=== PATIENT | female | born 1975 | race Asian ===

== ENCOUNTER 2021-10-19 22:28 | Inpatient (IN) | payer BC ==
[~2021-10-19] VITALS: Ht 165.1 cm; Wt 68.0 kg
[2021-10-19 22:54] VITALS: BP 132/75
[2021-10-19] MEDS ORDERED: PANTOPRAZOLE 40 MG INJ VIAL IVP ONE (23:00)
[2021-10-19] MEDS ORDERED: ASPIRIN 325 MG TAB PO ONE (23:00)
[2021-10-19] MEDS ORDERED: MORPHINE SULFATE 4 MG/ML SYR IVP ONE (23:00)
[2021-10-19] MEDS ORDERED: ONDANSETRON 4 MG/2 ML VIAL IVP ONE (23:00)
[2021-10-19] MEDS ORDERED: NITROGLYCERIN 0.4 MG TAB SL ONE (23:00)
--- NOTE | 2021-10-19 23:07 | NUR ---
LAB AT BEDSIDE.
[2021-10-19 23:14] LABS: BASOPHILS # (AUTO) 0.1 K/uL (0.00-0.22); BASOPHILS % (AUTO) 0.8 % (0.0-2.0); EOSINOPHILS # (AUTO) 0.2 K/uL (0-0.4); EOSINOPHILS % (AUTO) 2.2 % (0.0-4.0); HEMATOCRIT 38.6 % (36-48); HEMOGLOBIN 12.8 g/dL (12.0-16.0); LYMPHOCYTES # (AUTO) 3.5 K/uL (2.5-16.5); LYMPHOCYTES % (AUTO) 42.8 % (20.5-51.1); MEAN CORPUSCULAR HEMOGLOBIN 30 pg (27-31); MEAN CORPUSCULAR HGB CONC 33 g/dL (33-37); MEAN CORPUSCULAR VOLUME 91.4 fL (80-94); MONOCYTES # (AUTO) 0.4 K/uL (0.8-1.0); MONOCYTES % (AUTO) 5.4 % (1.7-9.3); NEUTROPHILS % (AUTO) 48.8 % (42.2-75.2); PLATELET COUNT (AUTO) 178 K/uL (140-450); RED BLOOD CELL COUNT(AUTO) 4.22 MIL/uL (4.20-5.40); RED CELL DISTRIBUTION WIDTH 13.6 % (11.6-13.7); WHITE BLOOD COUNT (AUTO) 8.1 K/uL (4.8-10.8)
--- NOTE | 2021-10-19 23:36 | NUR ---
45 YO F BIB WITH C/C OF HEART PALPITAIONS X4DAYS. PT STATES SHE FEELS DIZZY. REPORTS SHE WENT TO HOSPITAL ALREADY AND EVERYTHING CAME BACK NORMAL, WAS INSTRUCTED TO FOLLOW UP PLASTICS FITTER. DENIES CHEST PAIN. +SOB DENIES HX, RX AND ALLERGIES
[2021-10-19] MEDS ORDERED: NACL 0.9% 1,000 ML IV ONE ×2 (23:40)
--- NOTE | 2021-10-19 23:43 | NUR ---
VERBAL ORDER FROM TO HOLD MORPHINE IF PT DENIES CHEST PAIN. PT DENIES CHEST PAIN, MORPHINE HELD.
[2021-10-19 23:57] LABS: ANION GAP 9.5 (8-16); CARBON DIOXIDE 25.6 mmol/L (21-32); CHLORIDE 108 mmol/L (98-107); GLUCOSE 103 mg/dL (74-106); POTASSIUM 4.1 mmol/L (3.5-5.1); SODIUM SERUM 139 mmol/L (136-145)
[2021-10-19 23:58] LABS: CREATININE 0.5 mg/dL (0.6-1.3); GFR ARICAN-AMERICAN 172 mL/min (>90); UREA NITROGEN, BLOOD 14 mg/dL (7-18)
--- NOTE | 2021-10-20 00:06 | NUR ---
DENIES TAKING MEDICATION. PER BODY CHECK,NO WOUNDS
[2021-10-20 00:07] LABS: ALBUMIN 3.8 g/dL (3.4-5.0); ASPARTATE AMINOTRANSFERASE 19 U/L (15-37); TOTAL BILIRUBIN 0.3 mg/dL (0.0-1.0)
--- NOTE | 2021-10-20 00:40 | NUR ---
PT AMBULATED TO AND BACK
--- NOTE | 2021-10-20 02:32 | NUR ---
pt appears to be resting equal rise and fall of chest wall. vss. pt is in stable condition. all needs met at this time. bed locked in lowest position, side rails x2 for safety. is at bedside.
--- NOTE | 2021-10-20 07:10 | NUR ---
Pt report given to ROSEANNE SALAZAR. Transfer of care at this time.
--- NOTE | 2021-10-20 07:21 | NUR ---
RECEIVED REPORT FROM ROSEANNE MCALLISTER. ASSUMED CARE AT THIS TIME.
--- NOTE | 2021-10-20 07:33 | NUR ---
PATIENT DISCONNECTED FROM MONITOR, AMBULATED WITH STEADY GAIT TO RESTROOM.
--- NOTE | 2021-10-20 07:50 | NUR ---
Patient will be admitted to care of DR. LYNN. Admited to TELE. Will go to room 104B. Belongings list completed. BEDSIDE Report GIVEN to NIKHIL.
[2021-10-20 07:55] VITALS: BP 106/65
--- NOTE | 2021-10-20 07:55 | NUR ---
PT ADMITTED FROM ED. PT IS AOX4 AND NO S/S OF DISTRESS NOTED. BREATHING IS EVEN AND UNLABORED. DENIES PAIN. PT IS STABLE.
[2021-10-20] MEDS: METOPROLOL 25 MG TAB PO SCH ×2 (09:00→21:00)
[2021-10-20] MEDS: ASPIRIN 81 MG TAB.CHEW PO SCH (09:00)
[2021-10-20] MEDS ORDERED: ZOLPIDEM 5 MG TAB PO PRN (09:20)
[2021-10-20] MEDS ORDERED: ACETAMINOPHEN 325 MG TAB PO PRN (09:20)
[2021-10-20] MEDS ORDERED: DOCUSATE SODIUM 100 MG GELCAP PO PRN (09:20)
[2021-10-20] MEDS ORDERED: NITROGLYCERIN 0.4 MG TAB SL PRN (09:20)
[2021-10-20] MEDS ORDERED: MAG SULF 2000 MG/WATER PREMIX 50 ML IV PRN (09:20)
[2021-10-20] MEDS ORDERED: MORPHINE SULFATE 2 MG/ML SYR IVP PRN (09:20)
[2021-10-20] MEDS ORDERED: HYDROcodone/APAP 5/325 MG 1 TAB TAB PO PRN (09:20)
[2021-10-20] MEDS ORDERED: POTASSIUM CHLORIDE 10 MEQ TABER PO PRN (09:20)
[2021-10-20] MEDS ORDERED: ONDANSETRON 4 MG/2 ML VIAL IM/IVP PRN (09:20)
[2021-10-20] MEDS ORDERED: LORazepam 2 MG/ML VIAL IM/IVP PRN (09:20)
[2021-10-20] MEDS: NACL 0.9% 1,000 ML IV SCH (09:20)
[2021-10-20 11:45] LABS: BASOPHILS % (AUTO) 0.8 % (0.0-2.0); EOSINOPHILS # (AUTO) 0.1 K/uL (0-0.4); EOSINOPHILS % (AUTO) 1.8 % (0.0-4.0); HEMATOCRIT 35.2 % (36-48); HEMOGLOBIN 11.7 g/dL (12.0-16.0); LYMPHOCYTES % (AUTO) 39.6 % (20.5-51.1); MEAN CORPUSCULAR HEMOGLOBIN 30 pg (27-31); MEAN CORPUSCULAR HGB CONC 33 g/dL (33-37); MEAN CORPUSCULAR VOLUME 91.3 fL (80-94); MONOCYTES # (AUTO) 0.3 K/uL (0.8-1.0); MONOCYTES % (AUTO) 6.3 % (1.7-9.3); NEUTROPHILS # (AUTO) 2.6 K/uL (1.8-7.7); NEUTROPHILS % (AUTO) 51.5 % (42.2-75.2); PLATELET COUNT (AUTO) 164 K/uL (140-450); RED BLOOD CELL COUNT(AUTO) 3.86 MIL/uL (4.20-5.40); RED CELL DISTRIBUTION WIDTH 13.7 % (11.6-13.7)
--- NOTE | 2021-10-20 12:00 | NUR ---
PT HAS AN ECHO DONE TODAY. CHEST XR SHOWS NO PROBLEMS. AND NO S/S OF DISTRESS NOTED. BREATHING IS EVEN AND UNLABORED. DENIES PAIN. PT IS STABLE.
[2021-10-20 12:04] LABS: PROTHROMBIN TIME 10.4 secs (10.8-13.4)
--- NOTE | 2021-10-20 12:05 | NUR ---
DC PLANN[age] YRS OLD FEMALE PATIENT WAS ADMITTED FROM HOME WITH A DX OF CHEST PAIN. PATIENT HAS NO MEDICAL HISTORY. EKG SHOWS SINUS TACHY 120 . ADMINISTERED ACS PROTOCOL. CONSULTED WITH ROOM SERVICE SERVER. DC PLAN TO GO HOME WHEN STABLE CM TO FOLLOW
[2021-10-20 12:17] LABS: CHOL/HDL RATIO 4.3 (1-4.5); MAGNESIUM 2.1 mg/dL (1.8-2.4); PHOSPHORUS 3.3 mg/dL (2.5-4.9); THYROID STIMULATING HORMONE 1.46 uIU/mL (0.34-3.74)
[2021-10-20 12:29] LABS: ALBUMIN 3.2 g/dL (3.4-5.0); ANION GAP 10.6 (8-16); CARBON DIOXIDE 26.4 mmol/L (21-32); CREATININE 0.5 mg/dL (0.6-1.3); TOTAL BILIRUBIN 0.5 mg/dL (0.0-1.0)
[2021-10-20 16:00] VITALS: BP 115/61
[2021-10-20 16:07] LABS: APPEARANCE,URINE CLEAR (CLEAR); BILIRUBIN,URINE NEGATIVE (NEGATIVE); BLOOD, URINE NEGATIVE (NEGATIVE); COLOR,URINE YELLOW (YELLOW); LEUKOCYTE ESTERASE ,URINE NEGATIVE (NEGATIVE); NITRITE, URINE NEGATIVE (NEGATIVE); UGLUCOSE NEGATIVE (NEGATIVE)
--- NOTE | 2021-10-20 16:11 | NUR ---
PATIENT HAS BEEN SCREENED AND CATEGORIZED LOW NUTRITION RISK. PATIENT WILL BE SEEN WITHIN 7 DAYS OF ADMISSION. 10/26/[address]
--- NOTE | 2021-10-20 19:30 | NUR ---
RECEIVED BEDSIDE REPORT FROM DAY SHIFT NURSE. PATIENT IS AWAKE, ALERT, AND COOPERATIVE. RESPIRATION EVEN UNLABORED ON ROOM AIR. NO DISTRESS NOTED. SKIN IS WARM AND DRY. IV PATENT AND INTACT. PLAN OF CARE WAS DISCUSSED. ALL SAFETY MEASURE IN PLACE. BED IS AT LOW POSITION. CALL LIGHT WITHIN REACH. WILL CONTINUE TO MONITOR.
--- NOTE | 2021-10-20 19:30 | NUR ---
PT ENDORSED TO PLAN EXAMINER NURSE FOR CONTINUITY OF CARE. POC DISCUSSED.
[2021-10-20 20:00] VITALS: BP 109/69
--- NOTE | 2021-10-20 20:30 | NUR ---
ALL SCHEDULED MEDS WERE GIVEN PER ORDER. PATIENT COMPLAINED OF HEADACHE 3/10. PAIN MEDS GIVEN PER ORDER. WILL CONTINUE TO MONITOR
[2021-10-20 20:50] LABS: BARBITURATE, URINE NEGATIVE ng/ml (NEG <=200); BENZODIAZEPINE, URINE NEGATIVE ng/mL (NEG <=200); CANNABINOID, URINE NEGATIVE ng/mL (NEG <=50); COCAINE, URINE NEGATIVE ng/mL (NEG <=300); OPIATE, URINE NEGATIVE ng/mL (NEG <=2000); PHENCYCLIDINE SCREEN,URINE NEGATIVE ng/mL (NEG <=25)
[2021-10-20] MEDS ORDERED: ATORVASTATIN 20 MG TAB PO SCH (21:00)
[2021-10-20] MEDS ORDERED: METOPROLOL 25 MG TAB PO SCH (21:00)
--- NOTE | 2021-10-20 21:00 | NUR ---
SCHEDULED METOPROLOL NOT GIVEN PER PARAMETER ORDER. PATIENT BLOOD PRESSURE 95/65 HR 62. WILL CONTINUE TO MONITOR
--- NOTE | 2021-10-20 22:30 | NUR ---
PATIENT COMPLAINED OF 6/10 HEADACHE. PRN PAIN MEDS GIVEN PER ORDER. WILL CONTINUE TO MONITOR.
[2021-10-21] VITALS: BP 111/64
--- NOTE | 2021-10-21 00:10 | NUR ---
VITALS WERE TAKEN. NO DISTRESS NOTED. DENIES PAIN AT THIS TIME. WILL CONTINUE TO MONITOR
--- NOTE | 2021-10-21 02:17 | NUR ---
MADE ROUNDS PATIENT SLEEPING NO DISTRESS NOTED
[2021-10-21] MEDS: NACL 0.9% 1,000 ML IV SCH (03:33)
[2021-10-21 04:00] VITALS: BP 96/59
--- NOTE | 2021-10-21 04:00 | NUR ---
VITALS WERE TAKEN. PT IN STABLE CONDITION. NO DISTRESS NOTED. WILL CONTINUE TO MONITOR
[2021-10-21 06:17] LABS: BASOPHILS # (AUTO) 0.1 K/uL (0.00-0.22); BASOPHILS % (AUTO) 0.9 % (0.0-2.0); EOSINOPHILS # (AUTO) 0.1 K/uL (0-0.4); EOSINOPHILS % (AUTO) 2.2 % (0.0-4.0); HEMATOCRIT 33.8 % (36-48); HEMOGLOBIN 11.2 g/dL (12.0-16.0); LYMPHOCYTES # (AUTO) 2.9 K/uL (2.5-16.5); LYMPHOCYTES % (AUTO) 48.8 % (20.5-51.1); MEAN CORPUSCULAR HEMOGLOBIN 30 pg (27-31); MEAN CORPUSCULAR HGB CONC 33 g/dL (33-37); MONOCYTES # (AUTO) 0.3 K/uL (0.8-1.0); MONOCYTES % (AUTO) 5.3 % (1.7-9.3); NEUTROPHILS # (AUTO) 2.5 K/uL (1.8-7.7); NEUTROPHILS % (AUTO) 42.8 % (42.2-75.2); PLATELET COUNT (AUTO) 157 K/uL (140-450); RED BLOOD CELL COUNT(AUTO) 3.72 MIL/uL (4.20-5.40); RED CELL DISTRIBUTION WIDTH 13.6 % (11.6-13.7); WHITE BLOOD COUNT (AUTO) 5.9 K/uL (4.8-10.8)
[2021-10-21 07:36] LABS: ANION GAP 11.9 (8-16); CREATININE 0.5 mg/dL (0.6-1.3); POTASSIUM 3.9 mmol/L (3.5-5.1)
[2021-10-21 07:59] LABS: MAGNESIUM 1.9 mg/dL (1.8-2.4); PHOSPHORUS 4.6 mg/dL (2.5-4.9)
[2021-10-21 08:00] VITALS: BP 91/55
[2021-10-21] MEDS: METOPROLOL 25 MG TAB PO SCH (09:00)
[2021-10-21] MEDS ORDERED: lisinopriL 5 MG TAB PO SCH (09:00)
[2021-10-21] MEDS ORDERED: ASPIRIN 81 MG TAB.CHEW PO SCH (09:00)
[2021-10-21 09:06] LABS: T4 (THYROXINE) 5.5 ug/dL (4.5-12.0)
[2021-10-21] MEDS: ASPIRIN 81 MG TAB.CHEW PO SCH (09:33)
[2021-10-21] MEDS ORDERED: ASPI-1205 PO (10:06)
--- NOTE | 2021-10-21 11:10 | NUR ---
Patient notified of discharge order. Right AC IV 20G removed, cannula intact, site covered with gauze and tape. also at bedside. Informed them patient may change and get ready to go home, and RN will print out discharge papers.
--- NOTE | 2021-10-21 11:20 | NUR ---
Patient and seen leaving unit, all belongings with patient. Discharge papers not signed, patient insist to go home.
== END 2021-10-21 11:25 | disposition home or self-care (01) | DRG 206 ==
LOC: MED 22:28 → MTU 10-20 02:02
PROVIDERS: ADMIT General Practice; ATTEND General Practice
DX: M94.0 Chondrocostal junction syndrome [Tietze] (principal); E44.1 Mild protein-calorie malnutrition; K21.9 Gastro-esophageal reflux disease without esophagitis; I20.9 Angina pectoris, unspecified; K80.80 Other cholelithiasis without obstruction; Z20.822 Contact with and (suspected) exposure to COVID-19; E78.5 Hyperlipidemia, unspecified; E83.51 Hypocalcemia; I49.1 Atrial premature depolarization; Z68.25 Body mass index [BMI] 25.0-25.9, adult
CPT/HCPCS: 36415; 71045; 80048; 80053; 80305; 81003; 82150; 83036; 83690; 83735; 83880; 84100; 84134; 84436; 84443; 84484; 84702; 85025; 85610; 85730; 87081; 93005; 96361; 96374; 96375; 99285; C9113; J1644; J2270; J2405; J7030; Q0092